=== PATIENT | male | born 1970 | race Caucasian/White ===

== ENCOUNTER 2022-11-07 11:33 | Inpatient (IN) | payer MEDICAID, OTHER ==
[~2022-11-07] VITALS: Ht 185.4 cm; Wt 110.8 kg
[~2022-11-07 11:33] MED LIST: VICOT
[2022-11-07] MEDS ORDERED: INSREG SQ (12:35)
[2022-11-07] MEDS ORDERED: METF-1211 PO (12:35)
[2022-11-07 13:12] LABS: BASOPHILS % (AUTO) 0.6 % (0.0-2.0); EOSINOPHILS % (AUTO) 0.9 % (1.0-6.0); HEMATOCRIT 49.2 % (41-53); HEMOGLOBIN 16.5 g/dL (13.5-17.5); LYMPHOCYTES # (AUTO) 3.1 K/uL (1.0-4.8); LYMPHOCYTES % (AUTO) 28.6 % (22.0-44.0); MEAN CORPUSCULAR HEMOGLOBIN 31.8 pg (26.0-34.0); MEAN CORPUSCULAR HGB CONC 33.6 G/dL (31.0-37.0); MEAN CORPUSCULAR VOLUME 95 fL (80-100); MONOCYTES # (AUTO) 0.7 K/uL (0.1-1.0); MONOCYTES % (AUTO) 6.5 % (2.0-9.0); NEUTROPHILS % (AUTO) 63.4 % (40.0-70.0); PLATELET COUNT (AUTO) 179 K/uL (150-450); RED BLOOD CELL COUNT(AUTO) 5.19 MIL/uL (4.50-5.90); RED CELL DISTRIBUTION WIDTH 13.2 % (11.5-14.5)
[2022-11-07 13:26] LABS: ANION GAP 11 mmol/L (8-16); CALCIUM, TOTAL 9.5 mg/dL (8.8-10.5); CARBON DIOXIDE 24 mmol/L (22-29); CHLORIDE 100 mmol/L (98-107); CREATININE 0.83 mg/dL (0.60-1.30); GLOMERULAR FILTR. RATE CALC > 60 mL/min (>60); GLUCOSE,RANDOM 108 mg/dL (70-110); SODIUM SERUM 135 mmol/L (136-145); UREA NITROGEN, BLOOD 12 mg/dL (7-18)
[2022-11-07 13:27] LABS: ALANINE AMINOTRANSFERASE 26 U/L (12-78); ALBUMIN 4.5 g/dL (3.4-5.0); ALKALINE PHOSPHATASE 87 U/L (46-116); ASPARTATE AMINOTRANSFERASE 17 U/L (15-37); BILIRUBIN,TOTAL 0.5 mg/dL (0.1-1.0); TOTAL PROTEIN, SERUM 7.9 g/dL (6.4-8.2)
[2022-11-07 13:28] LABS: ALCOHOL, BLOOD (SERUM) < 3 mg/dL (0-10)
[2022-11-07] MEDS ORDERED: LORazepam 2 MG TABLET PO PRN (14:00)
[2022-11-07] MEDS ORDERED: HALOPERIDOL 5 MG TABLET PO PRN (14:00)
[2022-11-07] MEDS ORDERED: ZOLPIDEM TARTRATE 10 MG TABLET PO PRN (14:00)
[2022-11-07 20:38] LABS: COVID AG,FIA SOURCE NASAL SWAB
[2022-11-07 20:57] LABS: SARS-COV2 (COVID) ANTIGEN,FIA Negative (Negative)
[2022-11-07] MEDS ORDERED: DEXTROSE 50%-WATER 25 GM/50 ML SYRINGE IVP PRN (21:45)
[2022-11-07 22:01] LABS: GLUCOMETER DEV NAME(LOC) 3E.C; GLUCOSE,POINT OF CARE 121 MG/DL (70-110)
[2022-11-07 23:10] VITALS: PULSE 82; RESP 16; O2SAT 96
[2022-11-07 23:21] VITALS: PULSE 82; RESP 16; O2SAT 96
[2022-11-08 00:04] VITALS: BP 124/77; PULSE 92; RESP 19; TEMP 97.6; O2SAT 99
[2022-11-08] MEDS ORDERED: PNEUMOCOCCAL VACCINE POLYVALENT 0.5 ML SYRINGE [PPSV23] IM. ONE (00:45)
[2022-11-08 03:17] VITALS: PULSE 77; RESP 18; O2SAT 97
[2022-11-08 06:16] LABS: GLUCOMETER DEV NAME(LOC) 3E.C; GLUCOSE,POINT OF CARE 159 MG/DL (70-110)
[2022-11-08] MEDS: INSULIN LISPRO 100 UNITS/ML SQ PRN ×4 (06:49→21:24)
[2022-11-08] MEDS ORDERED: MetFORMIN HCL 500 MG TABLET PO SCH (07:30)
[2022-11-08 08:00] VITALS: BP 141/89; PULSE 97; RESP 19; TEMP 97.3; O2SAT 96
[2022-11-08] MEDS ORDERED: LOPERAMIDE HCL 2 MG CAPSULE PO PRN (09:00)
[2022-11-08] MEDS ORDERED: ACETAMINOPHEN 325 MG TABLET PO PRN (09:00)
[2022-11-08] MEDS ORDERED: HydrOXYzine PAMOATE 50 MG CAPSULE PO PRN (09:00)
[2022-11-08] MEDS ORDERED: MAGNESIUM HYDROXIDE SUSPENSION 30 ML UDCUP PO PRN (09:00)
[2022-11-08] MEDS ORDERED: TUBERCULIN, PURIFIED PROTEIN DERIVATIVE 5 TU/0.1 ML SYRINGE ID ONE (09:00)
[2022-11-08] MEDS ORDERED: GuaiFENesin/D-METHORPHAN [SUGAR-FREE] 200-20MG/10 ML SYRUP UDCUP PO PRN (09:00)
[2022-11-08] MEDS ORDERED: PROMETHAZINE HCL 25 MG TABLET PO PRN (09:00)
[2022-11-08] MEDS ORDERED: MAG HYDROX/AL HYDROX/SIMETH ES 30 ML SUSPENSION UDCUP PO PRN (09:00)
[2022-11-08] MEDS ORDERED: QUEtiapine FUMARATE 100 MG TABLET PO PRN (09:00)
[2022-11-08] MEDS: MULTIVITAMINS WITH MINERALS, THERAPEUTIC TABLET PO SCH (09:41)
[2022-11-08] MEDS: OMEGA-3/DHA/EPA/FISH OIL 1,000 MG CAPSULE PO SCH (09:41)
[2022-11-08] MEDS: THIAMINE 100 MG TABLET PO SCH ×2 (09:42→16:17)
[2022-11-08] MEDS: GABAPENTIN 300 MG CAPSULE PO SCH ×4 (09:42→21:05)
[2022-11-08] MEDS: NALTREXONE HCL 50 MG TABLET PO SCH (09:42)
[2022-11-08] MEDS: FOLIC ACID 1 MG TABLET PO SCH (09:42)
[2022-11-08 11:46] LABS: GLUCOMETER DEV NAME(LOC) 3E.C; GLUCOSE,POINT OF CARE 205 MG/DL (70-110)
[2022-11-08] MEDS: NICOTINE 14 MG/24 HOUR PATCH TD PRN (12:14)
[2022-11-08] MEDS: MetFORMIN HCL 500 MG TABLET PO SCH (16:17)
[2022-11-08 16:51] LABS: GLUCOMETER DEV NAME(LOC) 3E.C; GLUCOSE,POINT OF CARE 198 MG/DL (70-110)
[2022-11-08 21:01] LABS: GLUCOMETER DEV NAME(LOC) 3E.C; GLUCOSE,POINT OF CARE 136 MG/DL (70-110)
[2022-11-08] MEDS: MELATONIN 5 MG TABLET PO SCH (21:05)
[2022-11-08] MEDS: DULoxetine HCL 20 MG CAPSULE PO SCH (21:05)
[2022-11-08 22:21] VITALS: BP 132/69; PULSE 85; RESP 18; TEMP 98.2; O2SAT 97
[2022-11-09 05:46] LABS: GLUCOMETER DEV NAME(LOC) 3E.C; GLUCOSE,POINT OF CARE 151 MG/DL (70-110)
[2022-11-09] MEDS: INSULIN LISPRO 100 UNITS/ML SQ PRN ×3 (06:47→21:16)
[2022-11-09] MEDS: MetFORMIN HCL 500 MG TABLET PO SCH ×2 (06:59→16:28)
[2022-11-09 07:43] LABS: HEMOGLOBIN A1C 6.3 % (3.8-5.6)
[2022-11-09 07:55] LABS: CHOL/HDL RATIO 4.8 (4.2-7.3); THYROID STIMULATING HORMONE 0.87 uIU/mL (0.36-3.74)
[2022-11-09] MEDS: MULTIVITAMINS WITH MINERALS, THERAPEUTIC TABLET PO SCH (08:57)
[2022-11-09] MEDS: NALTREXONE HCL 50 MG TABLET PO SCH (08:57)
[2022-11-09] MEDS: FOLIC ACID 1 MG TABLET PO SCH (08:57)
[2022-11-09] MEDS: THIAMINE 100 MG TABLET PO SCH ×2 (08:57→16:28)
[2022-11-09] MEDS: OMEGA-3/DHA/EPA/FISH OIL 1,000 MG CAPSULE PO SCH (08:57)
[2022-11-09] MEDS: GABAPENTIN 300 MG CAPSULE PO SCH ×4 (08:58→20:42)
[2022-11-09 09:47] VITALS: BP 135/81; PULSE 83; RESP 19; TEMP 97; O2SAT 95
[2022-11-09 11:45] LABS: GLUCOMETER DEV NAME(LOC) 3E.C; GLUCOSE,POINT OF CARE 87 MG/DL (70-110)
[2022-11-09] MEDS: NICOTINE 14 MG/24 HOUR PATCH TD PRN (16:38)
[2022-11-09 17:21] LABS: GLUCOMETER DEV NAME(LOC) 3E.C; GLUCOSE,POINT OF CARE 177 MG/DL (70-110)
[2022-11-09 20:40] LABS: GLUCOMETER DEV NAME(LOC) 3E.C; GLUCOSE,POINT OF CARE 106 MG/DL (70-110)
[2022-11-09] MEDS: MELATONIN 5 MG TABLET PO SCH (20:42)
[2022-11-09] MEDS: DULoxetine HCL 20 MG CAPSULE PO SCH (20:42)
[2022-11-09 21:44] VITALS: BP 124/81; PULSE 86; RESP 18; TEMP 97.7; O2SAT 97
[2022-11-10 06:01] LABS: GLUCOMETER DEV NAME(LOC) 3E.C; GLUCOSE,POINT OF CARE 143 MG/DL (70-110)
[2022-11-10] MEDS: MetFORMIN HCL 500 MG TABLET PO SCH ×2 (06:44→17:10)
[2022-11-10] MEDS: INSULIN LISPRO 100 UNITS/ML SQ PRN ×2 (06:48→17:09)
[2022-11-10 08:10] VITALS: BP 127/83; PULSE 87; RESP 18; TEMP 98.2; O2SAT 96
[2022-11-10] MEDS: OMEGA-3/DHA/EPA/FISH OIL 1,000 MG CAPSULE PO SCH (09:38)
[2022-11-10] MEDS: GABAPENTIN 300 MG CAPSULE PO SCH ×4 (09:38→20:21)
[2022-11-10] MEDS: NALTREXONE HCL 50 MG TABLET PO SCH (09:38)
[2022-11-10] MEDS: FOLIC ACID 1 MG TABLET PO SCH (09:38)
[2022-11-10] MEDS: MULTIVITAMINS WITH MINERALS, THERAPEUTIC TABLET PO SCH (09:38)
[2022-11-10] MEDS: THIAMINE 100 MG TABLET PO SCH ×2 (09:38→17:10)
[2022-11-10 11:46] LABS: GLUCOMETER DEV NAME(LOC) 3E.C; GLUCOSE,POINT OF CARE 100 MG/DL (70-110)
[2022-11-10 16:46] LABS: GLUCOMETER DEV NAME(LOC) 3E.C; GLUCOSE,POINT OF CARE 153 MG/DL (70-110)
[2022-11-10 18:17] VITALS: BP 122/78; PULSE 84; RESP 18; TEMP 97.9
[2022-11-10] MEDS: DULoxetine HCL 20 MG CAPSULE PO SCH (20:21)
[2022-11-10] MEDS: MELATONIN 5 MG TABLET PO SCH (20:21)
[2022-11-10 20:26] LABS: GLUCOMETER DEV NAME(LOC) 3E.C; GLUCOSE,POINT OF CARE 121 MG/DL (70-110)
[2022-11-10 22:02] VITALS: BP 124/79; PULSE 76; RESP 18; TEMP 98.1; O2SAT 96
[2022-11-11 05:26] LABS: GLUCOMETER DEV NAME(LOC) 3E.C; GLUCOSE,POINT OF CARE 110 MG/DL (70-110)
[2022-11-11] MEDS: MetFORMIN HCL 500 MG TABLET PO SCH (06:35)
[2022-11-11] MEDS: THIAMINE 100 MG TABLET PO SCH (08:44)
[2022-11-11] MEDS: OMEGA-3/DHA/EPA/FISH OIL 1,000 MG CAPSULE PO SCH (08:44)
[2022-11-11] MEDS: FOLIC ACID 1 MG TABLET PO SCH (08:44)
[2022-11-11] MEDS: GABAPENTIN 300 MG CAPSULE PO SCH ×2 (08:44→12:35)
[2022-11-11] MEDS: MULTIVITAMINS WITH MINERALS, THERAPEUTIC TABLET PO SCH (08:44)
[2022-11-11] MEDS: NALTREXONE HCL 50 MG TABLET PO SCH (08:44)
[2022-11-11 09:25] VITALS: BP 134/80; PULSE 79; RESP 18; TEMP 97.6; O2SAT 98
[2022-11-11] MEDS ORDERED: NALT50TA PO (11:12)
[2022-11-11] MEDS ORDERED: DULO20CA71 PO (11:12)
[2022-11-11] MEDS ORDERED: MELA5TAB40 PO (11:12)
[2022-11-11] MEDS ORDERED: OMEG-135 PO (11:12)
[2022-11-11] MEDS ORDERED: GABA-1181 PO (11:12)
[2022-11-11 11:35] LABS: GLUCOMETER DEV NAME(LOC) 3E.C; GLUCOSE,POINT OF CARE 177 MG/DL (70-110)
[2022-11-11] MEDS: INSULIN LISPRO 100 UNITS/ML SQ PRN (11:44)
== END 2022-11-11 14:24 | disposition home or self-care (01) | DRG 751 ==
LOC: EMS 11:50 → 3EI 19:00
PROVIDERS: ADMIT Psychiatry & Neurology Psychiatry; ATTEND Psychiatry & Neurology Psychiatry
DX: F33.2 Major depressive disorder, recurrent severe without psychotic features (principal); R45.851 Suicidal ideations; E11.9 Type 2 diabetes mellitus without complications; I10 Essential (primary) hypertension; K21.9 Gastro-esophageal reflux disease without esophagitis; M19.90 Unspecified osteoarthritis, unspecified site; F17.210 Nicotine dependence, cigarettes, uncomplicated; F19.10 Other psychoactive substance abuse, uncomplicated; G89.29 Other chronic pain; Z20.822 Contact with and (suspected) exposure to COVID-19; M54.2 Cervicalgia; F10.10 Alcohol abuse, uncomplicated; G47.30 Sleep apnea, unspecified; E66.9 Obesity, unspecified; F41.1 Generalized anxiety disorder; Z79.4 Long term (current) use of insulin; Z79.84 Long term (current) use of oral hypoglycemic drugs; Z59.00 Homelessness unspecified; Z68.32 Body mass index [BMI] 32.0-32.9, adult
CPT/HCPCS: 80053; 80061; 82962; 83036; 84439; 84443; 85025; 86592; 87081; 93005; 94660; 99285; G0480; Q9967